=== PATIENT | female | born 1980 | race African-American/Black ===

== ENCOUNTER 2016-11-11 06:00 | Inpatient (IN) | payer BC ==
[~2016-11-11] VITALS: Ht 167.6 cm; Wt 82.0 kg
[2016-11-11] MEDS ORDERED: OXYTOCIN 30 UNITS/LR 500 ML IV SCH ×3 (21:00)
[2016-11-11] MEDS ORDERED: DINOPROSTONE 10 MG VAG SUPP VAG ONE (21:00)
[2016-11-11] MEDS ORDERED: CARBOPROST 250 MCG INJ IM PRN (21:00)
[2016-11-11] MEDS ORDERED: LIDOCAINE 1% (MPF) 30 ML INJ INJ PRN (21:00)
[2016-11-11] MEDS ORDERED: IBUPROFEN 600 MG TAB PO PRN (21:00)
[2016-11-11] MEDS ORDERED: METHYLERGONOVINE 0.2 MG INJ IM PRN (21:00)
[2016-11-11] MEDS ORDERED: BUTORPHANOL 2 MG INJ IV PRN ×2 (21:00)
[2016-11-11] MEDS ORDERED: OXYTOCIN 30 UNITS/LR 500 ML IV PRN (21:00)
[2016-11-11] MEDS ORDERED: ACETAMINOPHEN/CODEINE #3 TAB PO PRN (21:00)
[2016-11-11] MEDS ORDERED: MISOPROSTOL 200 MCG TAB PR PRN (21:00)
[2016-11-11 21:14] VITALS: Ht 167.6 cm; Wt 82.0 kg
--- NOTE | 2016-11-11 21:14 | HP ---
Date/Time of Note Date/Time of Note DATE: 11/11/16 TIME: 21:12 OB - History Hx of Present Free Text/Dictation admitted for induction of the labor on EDC Last Menstrual Period: Feb 11, 2016 Estimated Due Date: Nov 11, 2016 : 5 Para: 4 Care: Good Care Ultrasounds: Normal mid trimester US Obstetrical Complications: None Medical Complications: None Past Family/Social History * Past Medical, Surgical, Family and Obstetric Histories reviewed from chart. Blood Type: A+ Rubella: immune RPR/VDRL: Negative GBS Status: Negative HBsAG: Negative OB Admission Exam Physical Exam HEENT: WNL Heart: Rhythm Normal Lungs: Clear, Equal Abdomen: WNL Extremities: Normal Reflexes: Normal Cervical Dilatation: Fingertip Effacement: 0% Station: -3 Membranes: Intact Heart Rate: 140's Accelerations: Accelerations Present Decelerations: No Decelerations Varibility: Moderate Contractions on Admission: None OB Assessment/Plan Reason for admission: induction of labor Other Assessment: term gestation Induction Method: per Misoprostol Protocol HIGINIO RAE MD Nov 11, 2016 21:14
[2016-11-11 21:15] VITALS: BP 115/66; PULSE 80; RESP 15
[2016-11-11] MEDS: LACTATED RINGER'S 1,000 ML IV SCH ×2 (21:32→23:14)
[2016-11-11 22:02] LABS: ADD SCAN DIFF NO
[2016-11-11 22:04] LABS: BASOPHILS % 0.4 % (0.0-2.0); EOSINOPHILS # 0.2 10^3/ul (0.0-0.5); EOSINOPHILS % 3.7 % (0.0-7.0); HEMATOCRIT 31.8 % (37.0-47.0); HEMOGLOBIN 10.6 g/dl (12.0-16.0); LYMPHOCYTES # 1.6 10^3/ul (0.8-2.9); LYMPHOCYTES % 31.5 % (15.0-51.0); MEAN CORPUSCULAR HEMOGLOBIN 29.2 pg (29.0-33.0); MEAN CORPUSCULAR HGB CONC 33.3 g/dl (32.0-37.0); MEAN CORPUSCULAR VOLUME 87.6 fl (82.0-101.0); MEAN PLATELET VOLUME 11.5 fl (7.4-10.4); MONOCYTE # 0.5 10^3/ul (0.3-0.9); MONOCYTES % 8.7 % (0.0-11.0); NEUTROPHIL # 2.9 10^3/ul (1.6-7.5); NEUTROPHILS % 55.3 % (39.0-77.0); PLATELET COUNT 161 10^3/UL (140-415); RED BLOOD COUNT 3.63 10^6/ul (4.20-5.40); RED CELL DISTRIBUTION WIDTH 15.7 % (11.5-14.5); WHITE BLOOD COUNT 5.2 10^3/ul (4.8-10.8)
[2016-11-11 22:17] LABS: INR 1.05; PARTIAL THROMBOPLASTIN TIME 28.3 Sec (25.0-35.0); PROTIME 13.7 Sec (12.2-14.2); PT RATIO 1.1
[2016-11-12] MEDS: LACTATED RINGER'S 1,000 ML IV SCH ×4 (07:13→19:19)
--- NOTE | 2016-11-12 18:53 | PN ---
Date/Time of Note Date/Time of Note DATE: 11/12/16 TIME: 18:51 OB Subjective Subjective Subjective NO major C/O UCs OB Objective Objective Objective VSS P/E unchanged Cx: 1 cm posterior and thick OB Assessment/Plan Reason for admission: induction of labor Other Assessment: term gestation Other plan: continue with misoprostol HIGINIO RAE MD Nov 12, 2016 18:52
[2016-11-12] MEDS ORDERED: LACTATED RINGER'S 1,000 ML IV PRN (21:00)
[2016-11-13] MEDS: LACTATED RINGER'S 1,000 ML IV SCH (03:34)
[2016-11-13] MEDS ORDERED: FENTAnyl 2MCG/ML-ROPIV 0.2% 100 ML ONE (10:34)
[2016-11-13] MEDS ORDERED: MINERAL OIL LIGHT 10 ML VIAL TOP ONE (12:00)
[2016-11-13] MEDS ORDERED: ONDANSETRON 4 MG INJ IV PRN (13:00)
[2016-11-13] MEDS ORDERED: HYDROmorphONE 1 MG/ML SYG IV PRN ×2 (13:00)
[2016-11-13] MEDS ORDERED: DIPHENHYDRAMINE 50 MG INJ IV PRN (13:00)
[2016-11-13] MEDS ORDERED: FENTAnyl 2MCG/ML-ROPIV 0.2% 100 ML BAG EPI SCH (13:00)
[2016-11-13] MEDS ORDERED: ZOLPIDEM 5 MG TAB PO PRN ×2 (13:00→16:30)
[2016-11-13] MEDS ORDERED: NALOXONE (0.4 MG/ML) INJ IV PRN (13:00)
--- NOTE | 2016-11-13 14:07 | LDN ---
Date/Time of Note Date/Time of Note DATE: 11/13/16 TIME: 14:04 Delivery Summary of a viable over intact perineum with APGARs 8/9 Weeks of Gestation 40+ Placenta Delivered: Spontaneously, Intact & Complete Meconium: none Episiotomy: No Perineal laceration: 1 Laceration repair: superficial perineal laceration was repaired with 2 0 Vicryl Anesthesia type: Epidural Estimated blood loss: 300 Sponge & Needle done & correct: Yes All needle counts correct: Yes Any foreign bodies felt in the: No Problems: Infant Delivery Information Sex Sex: female Apgars 1 Minute: 8 5 Minute: 9 Suctioning Nose & mouth suctioned at chaya: Yes Delee suction performed: No Umbilical Cord Umbilical cord with: 3 Vessels Cord presentations: no nuchal cord Cord Blood was obtained: Yes Mother & Baby Disposition Disposition Mom & Baby to Maternity; Good: Yes (mother and baby were recovered in good condition ) Mom transferred to: Other (maternity ) Baby to NICU: No HIGINIO RAE MD Nov 13, 2016 14:07
[2016-11-13 15:50] VITALS: BP 119/72; PULSE 79; RESP 18
[2016-11-13] MEDS ORDERED: DIBUCAINE 1% 30 GM OINT PR PRN (16:30)
[2016-11-13] MEDS ORDERED: MISOPROSTOL 200 MCG TAB PR PRN (16:30)
[2016-11-13] MEDS ORDERED: METHYLERGONOVINE 0.2 MG INJ IM PRN (16:30)
[2016-11-13] MEDS ORDERED: ACETAMINOPHEN/CODEINE #3 TAB PO PRN ×2 (16:30)
[2016-11-13] MEDS ORDERED: WITCH HAZEL/GLYCERIN PAD PR PRN (16:30)
[2016-11-13] MEDS ORDERED: LANOLIN 7 GM TUBE TOP PRN (16:30)
[2016-11-13] MEDS ORDERED: CARBOPROST 250 MCG INJ IM PRN (16:30)
[2016-11-13] MEDS ORDERED: BENZOCAINE 20% 56 ML SPRAY TOP PRN (16:30)
[2016-11-13] MEDS ORDERED: OXYTOCIN 30 UNITS/LR 500 ML IV PRN (16:30)
[2016-11-13] MEDS: IBUPROFEN 600 MG TAB PO SCH (17:57)
[2016-11-13] MEDS: CEPHALEXIN 500 MG CAP PO SCH (17:57)
[2016-11-13 20:00] VITALS: BP 115/69; PULSE 83; RESP 18
[2016-11-13] MEDS: LACTATED RINGER'S 1,000 ML IV* SCH (20:11)
[2016-11-13] MEDS: SENNA/DOCUSATE NA (8.6MG/50MG) TAB PO SCH (21:10)
[2016-11-13] MEDS: MAGNESIUM HYDROXIDE 30ML CUP PO SCH (21:10)
[2016-11-14] MEDS: LACTATED RINGER'S 1,000 ML IV* SCH ×2 (00:30→08:30)
[2016-11-14] MEDS: CEPHALEXIN 500 MG CAP PO SCH ×4 (00:49→17:15)
[2016-11-14] MEDS: IBUPROFEN 600 MG TAB PO SCH ×4 (00:49→17:15)
[2016-11-14 03:45] VITALS: BP 105/69; PULSE 73; RESP 20
[2016-11-14 07:30] VITALS: BP 114/78; PULSE 75; RESP 16
[2016-11-14 08:03] LABS: ADD SCAN DIFF NO
[2016-11-14 08:08] LABS: BASOPHILS % 0.2 % (0.0-2.0); EOSINOPHILS # 0.1 10^3/ul (0.0-0.5); EOSINOPHILS % 2.3 % (0.0-7.0); HEMATOCRIT 30.9 % (37.0-47.0); HEMOGLOBIN 10.3 g/dl (12.0-16.0); LYMPHOCYTES # 1.2 10^3/ul (0.8-2.9); LYMPHOCYTES % 20.6 % (15.0-51.0); MEAN CORPUSCULAR HEMOGLOBIN 29.2 pg (29.0-33.0); MEAN CORPUSCULAR HGB CONC 33.3 g/dl (32.0-37.0); MEAN CORPUSCULAR VOLUME 87.5 fl (82.0-101.0); MEAN PLATELET VOLUME 11.6 fl (7.4-10.4); MONOCYTE # 0.6 10^3/ul (0.3-0.9); MONOCYTES % 10.4 % (0.0-11.0); NEUTROPHIL # 3.8 10^3/ul (1.6-7.5); NEUTROPHILS % 66.2 % (39.0-77.0); PLATELET COUNT 157 10^3/UL (140-415); RED BLOOD COUNT 3.53 10^6/ul (4.20-5.40); RED CELL DISTRIBUTION WIDTH 15.9 % (11.5-14.5); WHITE BLOOD COUNT 5.8 10^3/ul (4.8-10.8)
[2016-11-14] MEDS: MAGNESIUM HYDROXIDE 30ML CUP PO SCH ×2 (08:51→21:36)
[2016-11-14] MEDS: SENNA/DOCUSATE NA (8.6MG/50MG) TAB PO SCH ×2 (08:51→21:36)
--- NOTE | 2016-11-14 14:00 | DS ---
Date/Time of Note Date/Time of Note home next day DATE: 11/14/16 TIME: 13:59 Obstetrical Discharge Record Final Diagnosis Final Diagnosis: Term delivered Other Final Diagnosis S/P vaginal delivery Vaginal Delivery Obstetrical Delivery: Spontaneous, Laceration, Repaired Complications Augmentation: No Induction: Yes Condition on Discharge Physical Assessment Last Vitals: see nurses notes Voiding: Yes Bowel Movement: Yes Breast: Soft, non-tender, Filling Fundus: Firm Abdomen and Incision: soft BS + Episiotomy: perineum : healing Calf Tenderness: No Patient Condition: Good HIGINIO RAE MD Nov 14, 2016 14:00
--- NOTE | 2016-11-14 14:01 | PD.PPDC ---
[employer] Discharge Instruction Provider Information Physician Information 35 y/o female had vagina delivery Diagnosis Final Diagnosis: S/P vaginal delivery Condition Patient Condition: Good Diet Diet: Resume Regular Diet Activity/Restrictions Activity: Normal Activity May Shower Restrictions: Nothing in the Vagina Return to Work or School: Dec 30, 2016 Follow-up Follow-up with Physician: 4, Week/Weeks (in clinic ) Return to clinic for OB Instructions: Breast Tenderness Depression HIGINIO RAE MD Nov 14, 2016 14:01
[2016-11-14] MEDS ORDERED: IBUP-1542 PO (14:02)
[2016-11-14 15:58] VITALS: BP 112/79; PULSE 80; RESP 16
[2016-11-14 20:10] VITALS: BP 110/70; PULSE 70; RESP 19
[2016-11-15] MEDS: CEPHALEXIN 500 MG CAP PO SCH ×2 (00:27→06:36)
[2016-11-15] MEDS: IBUPROFEN 600 MG TAB PO SCH ×2 (00:27→06:36)
[2016-11-15 04:10] VITALS: BP 103/68; PULSE 70; RESP 18
[2016-11-15 07:50] VITALS: BP 113/89; PULSE 76; RESP 18
[2016-11-15] MEDS ORDERED: DIPHTH/TET/ACEL PERTUSS (ADULT) 0.5 ML VIAL IM* ONE (09:00)
[2016-11-15] MEDS ORDERED: VARICELLA VACCINE LIVE/PF 1,350 UNIT/0.5 ML ML SC* ONE (09:00)
[2016-11-15] MEDS ORDERED: MEASLES,MUMPS,RUBELLA VACCINE INJ SC* ONE (09:00)
[2016-11-15] MEDS: SENNA/DOCUSATE NA (8.6MG/50MG) TAB PO SCH (09:11)
[2016-11-15] MEDS: MAGNESIUM HYDROXIDE 30ML CUP PO SCH (09:11)
== END 2016-11-15 11:50 | disposition home or self-care (01) | DRG 775 ==
LOC: L-D 17:53 → PP1 11-13 15:46
PROVIDERS: ADMIT Obstetrics & Gynecology; ATTEND Obstetrics & Gynecology
PROC: 10E0XZZ Delivery of Products of Conception, External Approach (ICD-10-PCS; principal; 2016-11-13)
PROC: 0HQ9XZZ Repair Perineum Skin, External Approach (ICD-10-PCS; 2016-11-13)
DX: O48.0 Post-term pregnancy (principal); O70.0 First degree perineal laceration during delivery; Z3A.40 40 weeks gestation of pregnancy; Z37.0 Single live birth
CPT/HCPCS: 62319; 85025; 85610; 85730; 86592; 86900; 86901; 90715; 90716; J2590; J3010; J7120

== ENCOUNTER 2018-06-01 08:15 | Emergency (ER) | END 2018-06-01 08:45 | disposition home or self-care (01) ==

== ENCOUNTER 2018-11-22 12:13 | Emergency (ER) | payer BC ==
[~2018-11-22] VITALS: Wt 65.5 kg
[~2018-11-22 12:13] MED LIST: AZIT250T PO; D-ME473S2 PO; FLUT9.9S NASAL; IBUP-1542 PO
[2018-11-22] MEDS ORDERED: FLUCONAZOLE 150 MG TAB PO ONE (14:00)
[2018-11-22] MEDS ORDERED: METR70GE15 VAG (14:49)
[2018-11-22] MEDS ORDERED: FLUC150T PO (14:49)
[2018-11-22 15:01] VITALS: BP 153/98; PULSE 73; RESP 18
--- NOTE | 2018-11-22 15:17 | ERD ---
ER Documentation Chief Complaint Chief Complaint GENITAL ITCHING X 1 DAY HPI History of Present Illness: 37-year-old female with no past medical history coming in today with complaint of vaginal discharge and genital itching is been present for 1 day. Patient reports being a monogamous relationship with no concern for sexually transmitted diseases. Patient describes discharge as thick, white, nonodorous. Patient reports symptoms started yesterday. Patient denies abdominal pain or dysuria. At home pharmacological/nonpharmacological treatment for symptoms: Denies Denies social concerns; Denies recent foreign travel ROS All systems reviewed and are negative except as per history of present illness. Medications Home Meds Active Scripts Fluconazole* (Diflucan*) 150 Mg Tablet, 150 MG PO ONCE for YEAST INFECTION, #1 TAB Take this medication on the last day that you use the metronidazole gel. This will help prevent or stop any yeast growth that can occur after antibiotics. Prov:MARV VEGA NP 11/22/18 Metronidazole* (Metrogel* Vaginal) 0.75% -70 Gram Gel.w.appl, 1 APPFUL VAG BID for VAGINAL INFECTION for 5 Days, TUB Prov:MARV VEGA NP 11/22/18 Ibuprofen* (Motrin*) 600 Mg Tab, 600 MG PO Q6, #30 TAB Prov:FRANCIS REVELES PA-C 06/01/18 Fluticasone Propionate (Flonase Allergy Relief) 9.9 Ml [place].susp, 1 SPRAY NASAL BID, #1 BOTTLE TO EACH NOSTRIL Prov:FRANCIS REVELES PA-C 06/01/18 Dextromethorphan Hb-Promethazine Hcl* (Promethazine DM* Syrup) 473 Ml Syrup, 5 ML PO Q6 PRN for COUGH for 7 Days, ML Prov:FRANCIS REVELES PA-C 06/01/18 Azithromycin* (Zithromax*) 250 Mg Tablet, 250 MG PO .ZPACK DIRECTED, #6 TAB TAKE 500 MG (2 TABS) THE FIRST DAY THEN 250 MG (1 TAB) DAYS 2-5 Prov:FRANCIS REVELES PA-C 06/01/18 Ibuprofen* (Ibuprofen*) 600 Mg Tablet, 600 MG PO Q6, #20 TAB 0 Refills Prov:HIGINIO RAE MD 11/14/16 Allergies Allergies: Coded Allergies: No Known Allergies (Verified Allergy, Unknown, 11/22/18) PMhx/Soc Hx Alcohol Use: No Hx Substance Use: No Hx Tobacco Use: No Smoking Status: Never smoker FmHx Family History: No diabetes, No coronary disease Physical Exam Vitals Vital Signs Date Temp Pulse Resp B/P (MAP) Pulse Ox O2 O2 Flow FiO2 Time Delivery Rate 11/22/18 97.7 73 18 153/98 100 Room Air 15:01 (116) 11/22/18 97.7 70 16 142/95 100 12:23 (111) Physical Exam Const: No acute distress Head: Atraumatic Eyes: Normal Conjunctiva ENT: Normal External Ears, Nose and Mouth. Neck: Full range of motion. No meningismus. Resp: Clear to auscultation bilaterally Cardio: Regular rate and rhythm, no murmurs Abd: Soft, non tender, non distended. Normal bowel sounds Skin: No petechiae or rashes Back: No midline or flank tenderness Ext: No cyanosis, or edema Neur: Awake and alert Psych: Normal Mood and Affect Vaginal exam deferred, patient prefers self swab. Patient denies any type of vesicle or lesions noted to genitalia. Results 24 hrs Laboratory Tests Test 11/22/18 13:47 11/22/18 14:00 Urine Color YELLOW Urine Clarity SLIGHTLY CLOUDY Urine pH 8.0 Urine Specific [place] 1.020 Urine Ketones NEGATIVE mg/dL Urine Nitrite NEGATIVE mg/dL Urine Bilirubin NEGATIVE mg/dL Urine Urobilinogen NEGATIVE mg/dL Urine Leukocyte Esterase 1+ Ana/ul Urine Microscopic RBC 1 /HPF Urine Microscopic WBC 3 /HPF Urine Squamous Epithelial Cells MODERATE /HPF Urine Hemoglobin 1+ mg/dL Urine Glucose NEGATIVE mg/dL Urine Total Protein NEGATIVE mg/dl POC Beta HCG, Qualitative NEGATIVE Current Medications Medications Dose Sig/Elaine Start Time Status Last (Trade) Ordered Route PRN Stop Time Admin Dose Reason Admin Fluconazole 150 mg ONCE ONCE 11/22/18 DC 11/22/18 (Diflucan) PO 14:00 14:02 11/22/18 14:01 Procedures/MDM ED course includes a thorough examination and history. Medications: Diflucan for prophylactic treatment of yeast Imaging: -- Labs: Urinalysis, urine , urogenital wet mount Low suspicion for life-threatening medical emergency. Low suspicion for genitourinary or acute abdominal emergency department auscultation or intervention. Otherwise healthy patient presenting with constellation of symptoms likely representing uncomplicated bacterial vaginosis as characterized by history, p hysical exam findings, lab findings. Urine negative. wet mount positive for clue cells. Urinalysis positive for leukocyte esterase, moderate epithelial cells appears to be dirty catch sample; no treatment of bacteria and urine due to patient being a traumatic. No respiratory distress, otherwise relatively well appearing and nontoxic. Patient realizes understanding of discharge instructions. patient educated on diagnoses, prescriptions, follow-up care, return precautions. Strict return pre cautions given for worsening condition; questions answered discharge. Disposition for discharge with followup in 2 days with PCP/clinic. Departure Diagnosis: Primary Impression: Bacterial vaginosis Additional Impression: Itching of vagina Condition: Stable Patient Instructions: Vaginal Infection: Bacterial Vaginosis Referrals: [facility] YOU HAVE RECEIVED A MEDICAL SCREENING EXAM AND THE RESULTS INDICATE THAT YOU DO NOT HAVE A CONDITION THAT REQUIRES URGENT TREATMENT IN THE EMERGENCY DEPARTMENT. FURTHER EVALUATION AND TREATMENT OF YOUR CONDITION CAN WAIT UNTIL YOU ARE SEEN IN YOUR DOCTORS OFFICE WITHIN THE NEXT 1-2 DAYS. IT IS YOUR RESPONSIBILITY TO MAKE AN APPOINTMENT FOR FOLOW-UP CARE. IF YOU HAVE A PRIMARY DOCTOR --you should call your primary doctor and schedule an appointment IF YOU DO NOT HAVE A PRIMARY DOCTOR YOU CAN CALL OUR PHYSICIAN REFERRAL HOTLINE AT IF YOU CAN NOT AFFORD TO SEE A PHYSICIAN YOU CAN CHOSE FROM THE FOLLOWING [facility] [address] [facility]. [facility] [address] [facility] [facility] [address] [facility] [address] [facility] [address] [facility]. [facility]. [address] [facility]. [facility] YOU HAVE RECEIVED A MEDICAL SCREENING EXAM AND THE RESULTS INDICATE THAT YOU DO NOT HAVE A CONDITION THAT REQUIRES URGENT TREATMENT IN THE EMERGENCY DEPARTMENT. FURTHER EVALUATION AND TREATMENT OF YOUR CONDITION CAN WAIT UNTIL YOU ARE SEEN IN YOUR DOCTORS OFFICE WITHIN THE NEXT 1-2 DAYS. IT IS YOUR RESPONSIBILITY TO MAKE AN APPOINTMENT FOR FOLOW-UP CARE. IF YOU HAVE A PRIMARY DOCTOR --you should call your primary doctor and schedule and appointment IF YOU DO NOT HAVE A PRIMARY DOCTOR YOU CAN CALL OUR PHYSICIAN REFERRAL HOTLINE AT . IF YOU CAN NOT AFFORD TO SEE A PHYSICIAN YOU CAN CHOSE FROM THE FOLLOWING [facility] INSTITUTIONS: [facility] [address] [place] [address] [facility] [address] [place] [address] [facility] [address] [place] [address] Additional Instructions: Thank you very much for allowing us to participate in your care. Your health and safety is our top priority at [facility]. It is important to read all discharge instructions and education provided in your discharge packet. Call your primary care doctor TOMORROW for an appointment during the next 2-4 days and bring all the information and medications prescribed. Have prescriptions filled and follow precisely the directions on the label. -Metronidazole gel IS an antibiotic; take this medication every day every 12 hours as listed on your prescription. You must complete the entire course of treatment that is listed on your prescription this is very important because it takes a certain number of days to kill the bacteria that is causing the infecti on. -Diflucan IS a antifungal. Take this medication on the last day that you use the metronidazole gel. This will help prevent or stop any yeast growth that can occur after taking antibiotics. If the symptoms get worse and your provider is unavailable, return to the Emergency Department immediately. MARV VEGA NP Nov 22, 2018 15:17
== END 2018-11-22 15:04 | disposition home or self-care (01) ==
LOC: FTE 12:13
DX: N76.0 Acute vaginitis (principal)
CPT/HCPCS: 81001; 81025; 87210; Z7610; 99283